=== PATIENT | male | born 1945 | race Caucasian/White ===

== ENCOUNTER → 2016-06-11 | Outpatient (CLI) | payer OTHER ==
[2016-06-11 14:07] LABS: BASOPHILS # (AUTO) 0.04 10*3/UL; BASOPHILS % (AUTO) 0.5 % (0-1); EOSINOPHILS # (AUTO) 0.12 10*3/UL; EOSINOPHILS % (AUTO) 1.5 % (0-8); HEMATOCRIT 47.5 % (42.0-52.0); HEMOGLOBIN 17.1 g/dL (14.0-18.0); LYMPHOCYTES # (AUTO) 1.44 10*3/uL; MEAN CORPUSCULAR HEMOGLOBIN 33.4 PG (27-31); MEAN CORPUSCULAR VOLUME 92.8 FL (80-90); MONOCYTES # (AUTO) 0.74 10*3/UL (0.3-0.8); MONOCYTES % (AUTO) 8.9 % (5-15); NEUTROPHILS # (AUTO) 5.92 10*3/UL; NEUTROPHILS % (AUTO) 71.6 % (50-80); RED BLOOD COUNT 5.12 10^6/uL (4.70-6.10)
[2016-06-11 14:08] LABS: PLATELET MORPHOLOGY COMMENT NORMAL MORPHOLOGY (NORM); RBC MORPHOLOGY COMMENT NORMAL MORPHOLOGY (NORM); WBC MORPHOLOGY COMMENT NORMAL MORPHOLOGY (NORM)
[2016-06-11 14:09] LABS: BLOOD UREA NITROGEN 16 mg/dL (7-22); BUN/CREATININE RATIO 14.54 (6-20); CALCIUM 9.8 mg/dL (8.7-10.7); CHOL/HDL RATIO 2.68 RATIO (0-4.0); EST GLOMERULAR FILTRATION > 60 (>60 ml/min/1.73m(2)); HDL CHOLESTEROL 44 mg/dL (40-150); SERUM ALBUMIN 3.8 g/dL (3.5-4.8); SERUM CHOLESTEROL 118 mg/dL (120-200)
== END ==
LOC: LAB 13:22
PROVIDERS: ATTEND Internal Medicine
DX: I10 Essential (primary) hypertension (principal); E03.9 Hypothyroidism, unspecified; G47.33 Obstructive sleep apnea (adult) (pediatric); E29.1 Testicular hypofunction; F17.210 Nicotine dependence, cigarettes, uncomplicated; Z12.5 Encounter for screening for malignant neoplasm of prostate
CPT/HCPCS: 36415; 80053; 80061; 84403; 84443; 85025; G0103

== ENCOUNTER → 2016-09-02 | Outpatient (CLI) | payer OTHER | LOC: MMPC 11:11 | PROVIDERS: ATTEND Internal Medicine | DX: R07.2 Precordial pain (principal); M17.12 Unilateral primary osteoarthritis, left knee; R41.0 Disorientation, unspecified; F17.219 Nicotine dependence, cigarettes, with unspecified nicotine-induced disorders | CPT/HCPCS: 99215; G0463 ==

== ENCOUNTER → 2016-09-10 | Outpatient (CLI) | payer OTHER ==
--- NOTE | 2016-09-10 11:10 | DI ---
MRI BRAIN SCAN WITHOUT CONTRAST, 09/10/2016 9:08 AM: Clinical History: Episode of confusion. Previous Exam: None at this facility. Sequences: Sagittal T1; Axial TARA T2 and FLAIR. Axial diffusion weighted images with ADC mapping were also performed. The 4th, 3rd, and lateral ventricles are of normal size, shape, position, and contour for this patien t's age. There are multiple punctate hyperintensities in the white matter bilaterally in the centrum semiovale and these may be related to mild small vessel ischemic disease. There is no evidence of an acute hemorrhagic or bland infarct. There is moderate cerebral atrophy. Diffusion weighted imaging wi th ADC mapping is normal. There are no extracerebral mantels or shift of the midline structures. Ther e is a mucous retention cyst in the floor of the right maxillary sinus. Readin. Bilateral small punctate hyperintensities in the centrum semiovale most likely related to very mi ld small vessel ischemic disease. There is no acute hemorrhagic or bland infarct. 2. Moderate cerebral atrophy. 3. Diffusion weighted imaging with ADC mapping is normal.
--- NOTE | 2016-09-10 11:28 | DI ---
DUPLEX COLOR DOPPLER CAROTID ULTRASOUND, 09/10/2016 9:09 AM: Clinical History: Episode of confusion. Previous Exam: None at this facility. Technique: 2D real time imaging is supplemented with duplex color doppler ultrasound imaging. RIGHT CAROTID ARTERY: 2D real time imaging of the right carotid system shows a normal appearance of the right common caroti d artery. Small calcified and noncalcified plaques are present in the right carotid bulb and these ex tend into the proximal portions of the internal and external carotid arteries. Peak systolic velociti es through the right common carotid, the external carotid, and the internal carotid are 103 cm/s, 87 cm/s, and 68 cm/s, respectively. All values correspond to diameter stenoses of 0-49%. LEFT CAROTID ARTERY: 2D real time imaging of the left carotid system shows a normal appearance of the left common carotid artery. There are small calcified and noncalcified plaques in the left carotid the and in the origins of the internal and external carotid arteries. Peak systolic velocities through the left common yeboah tid, the external carotid, and the internal carotid are 117 cm/s, 99 cm/s, and 64 cm/s, respectively. All values correspond to diameter stenoses of 0-49%. VERTEBRAL ARTERIES: There is antegrade flow through both vertebral arteries. This patient exhibited sinus bradycardia th roughout the entire exam with the heart rate measured between as low as 33 beats per minute but with the majority of beats between 43-48 beats per minute. Peak systolic velocities through the visualized portions of the right and left vertebral arteries are 47 cm/s and 40 cm/s, respectively. Both values correspond to diameter stenoses of 0-49%. Readin. There is no hemodynamically significant stenosis of either carotid system. 2. This patient exhibited sinus bradycardia throughout the exam with one measurement being low as 33 beats per minute. The general range during this exam was between 43-48 beats per minute. 3. There is antegrade flow through both vertebral arteries.
--- NOTE | 2016-09-11 08:52 | STRESSTEST ---
[facility] [place] This 71 y.o. male is referred by Dr. Miranda after an episode of diaphoresis and confusion after a fall on a very painful knee. Risk factors include smoking, family Hx (father), and hypertension but no diabetes, and no lipid profile risk. His resting ECG is abnormal with sinus bradycardia (42 BPM), first degree AV block, and borderline inferior Q waves. He did not have hypoxia, wheezing, or significant ectopy or ST changes with the study and caffeine reversed his mild facial flush. PLAN: Review images and consider decreasing beta blockade. Electronically Signed On 09-15-16 14:53:06 MDT by Yair Seymour MD [email or web address]
== END ==
LOC: MRI 09:01
PROVIDERS: ATTEND Internal Medicine
DX: R41.0 Disorientation, unspecified (principal); R07.2 Precordial pain; R00.1 Bradycardia, unspecified; G31.9 Degenerative disease of nervous system, unspecified; M17.12 Unilateral primary osteoarthritis, left knee; R94.31 Abnormal electrocardiogram [ECG] [EKG]; Z72.0 Tobacco use
CPT/HCPCS: 70551; 78452; 93016; 93017; 93018; 93880; A9500; J2785

== ENCOUNTER → 2016-09-24 | Outpatient (CLI) | payer OTHER ==
--- NOTE | 2016-09-25 19:55 | DI ---
LEFT KNEE, 09/24/2016 3:08 PM: Clinical History: Left knee pain. Previous Exam: None at this facility. 4 views are submitted. The AP and tunnel projections are weight bearing views. There is an old fractu re of what probably is the posterior aspect of the medial tibial plateau. Severe degenerative arthrit is is present in the medial and lateral compartments with complete obliteration of the joint spaces. There is a lucency in the proximal tibia medially and this is probably related to the fracture. The p atellofemoral compartment is intact but there is chondrocalcinosis. A small joint effusion is present . 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 Readin. 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 2. Small joint effusion. There is chondrocalcinosis of the patellofemoral compartment and that jose miguel rtment is intact. 3. 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
== END ==
LOC: ORTHO 16:11
PROVIDERS: ATTEND Orthopaedic Surgery
DX: M25.562 Pain in left knee (principal); M25.462 Effusion, left knee; M17.12 Unilateral primary osteoarthritis, left knee; M11.262 Other chondrocalcinosis, left knee; Z02.89 Encounter for other administrative examinations
CPT/HCPCS: 73564

== ENCOUNTER → 2016-10-23 | Outpatient (CLI) | payer OTHER | LOC: LAB 14:45 | PROVIDERS: ATTEND Internal Medicine | DX: Z91.89 Other specified personal risk factors, not elsewhere classified (principal) | CPT/HCPCS: 36415; 86803; 87522 ==